=== PATIENT | female | born 1985 | race Caucasian/White ===

== ENCOUNTER → 2017-06-08 | Outpatient (CLI) | payer OTHER ==
[~2017-06-08] MED LIST: LEXAPRO 10MG10 MG PO; PRENATAL1 TA1 PO
== END ==
LOC: SUN.DIA 10:13
DX: O24.419 Gestational diabetes mellitus in pregnancy, unspecified control (principal); Z3A.30 30 weeks gestation of pregnancy; Z71.3 Dietary counseling and surveillance
CPT/HCPCS: G0108

== ENCOUNTER → 2017-06-10 | Outpatient (CLI) | payer OTHER | LOC: SUN.DIA 10:55 | DX: O24.419 Gestational diabetes mellitus in pregnancy, unspecified control (principal); Z3A.30 30 weeks gestation of pregnancy; Z71.3 Dietary counseling and surveillance | CPT/HCPCS: G0108 ==

== ENCOUNTER 2017-06-19 14:16 | Inpatient (IN) | payer OTHER ==
[~2017-06-19] VITALS: Ht 165.2 cm; Wt 101.8 kg
[2017-08-12] VITALS (17 sets, daily range): BP systolic 115–141; BP diastolic 58–90; PULSE 68–109; TEMP 97.7–98.7
[2017-08-12 14:52] LABS: BASO % 0.5 % (0.0-2.0); EOS % 0.3 % (0-4.0); GRAN # 5.7 (1.4-6.5); GRAN % 74.5 % (42.2-75.2); HEMATOCRIT 37.1 % (37.0-47.0); HEMOGLOBIN 12.8 g/dl (12.5-16.0); LYMPH # 1.3 (1.2-3.4); LYMPH % 17.1 % (20.0-51.0); MEAN CELL VOLUME 95 fl (80.0-100.0); MEAN CORPUSCULAR HEMOGLOBIN 33 pg (27.0-31.0); MEAN CORPUSCULAR HGB CONC 35 g/dl (33.0-37.0); MEAN PLATELET VOLUME 10.6 fl (7.4-10.4); MONO # 0.5 (0.1-0.6); MONO % 7.1 % (1.7-9.3); PLATELET COUNT 262 K/mm3 (130-400); RED BLOOD COUNT 3.92 M/mm3 (4.10-5.30); WHITE BLOOD COUNT 7.6 K/mm3 (4.8-10.8)
[2017-08-13 00:10] VITALS: BP 121/75; PULSE 63; TEMP 97.5
[2017-08-13 04:00] VITALS: BP 122/84; PULSE 68; TEMP 97.5
[2017-08-13 07:15] LABS: HEMATOCRIT 33.3 % (37.0-47.0); HEMOGLOBIN 11.3 g/dl (12.5-16.0)
[2017-08-13 07:32] VITALS: BP 131/79; PULSE 82; TEMP 98.1
[2017-08-13 16:15] VITALS: BP 132/78; PULSE 85; TEMP 98.1
[2017-08-13 20:00] VITALS: BP 132/83; PULSE 62; TEMP 98.2
[2017-08-14 07:05] VITALS: BP 129/89; PULSE 67; TEMP 97.8
[2017-08-14] MEDS ORDERED: MOTRIN 600600 MG/TAB PO (09:38)
[2017-08-14] MEDS ORDERED: PERCOCET 325 MG1 TA2 PO (09:38)
[2017-08-14 16:02] VITALS: BP 125/85; PULSE 62; TEMP 98.6
[2017-08-14 20:00] VITALS: BP 133/83; PULSE 69; TEMP 98
== END 2017-08-15 10:40 | disposition home or self-care (01) | DRG 766 ==
LOC: OB 08-12 06:34 → LDR 08-19 14:16
PROVIDERS: Obstetrics & Gynecology
PROC: 10D00Z1 Extraction of Products of Conception, Low, Open Approach (ICD-10-PCS; principal; 2017-08-12)
DX: O34.211 Maternal care for low transverse scar from previous cesarean delivery (principal); N85.8 Other specified noninflammatory disorders of uterus; Z3A.39 39 weeks gestation of pregnancy; Z37.0 Single live birth
CPT/HCPCS: J0171; J0690; J1885; J2175; J2270; J2370; J2405; J2590; J7120

== ENCOUNTER → 2017-06-25 | Outpatient (CLI) | payer OTHER | LOC: SUN.DIA 08:38 | DX: O24.419 Gestational diabetes mellitus in pregnancy, unspecified control (principal); Z3A.33 33 weeks gestation of pregnancy; Z71.3 Dietary counseling and surveillance | CPT/HCPCS: G0108 ==

== ENCOUNTER → 2017-07-14 | Outpatient (CLI) | payer OTHER | LOC: SUN.DIA 09:32 | DX: O24.419 Gestational diabetes mellitus in pregnancy, unspecified control (principal); Z3A.35 35 weeks gestation of pregnancy; Z71.3 Dietary counseling and surveillance | CPT/HCPCS: G0108 ==

== ENCOUNTER → 2023-09-30 | Outpatient (CLI) | payer OTHER ==
[~2023-09-30] MED LIST changes: +MOTRIN 600600 MG/TAB PO; +PERCOCET 325 MG1 TA2 PO
== END ==
LOC: MC.RAD 10:43
DX: Z12.31 Encounter for screening mammogram for malignant neoplasm of breast (principal)